=== PATIENT | female | born 1955 | race American Indian/Alaskan Native ===

== ENCOUNTER 2019-10-17 08:41 | Day surgery (SDC) | payer MEDICARE ==
[2019-10-17] MEDS ORDERED: LIDOCAINE MPF (2%) 20 MG/1 ML VIAL 5 ML ONE (09:00)
[2019-10-17] MEDS ORDERED: SODIUM CHLORIDE 0.9% 1000 ML 1,000 ML ONE (09:01)
--- NOTE | 2019-10-17 09:36 | Anesthesia Day of Surgery ---
Anesthesia Day of Surgery - Day of Surgery Patient Examined: Yes Patient H&P Reviewed: Yes Patient is NPO: Yes
--- NOTE | 2019-10-17 09:36 | Anesthesia Consultation ---
Anesthesia Consult and Med Hx Date of service: 10/17/19 - Airway Anesthetic Teeth Evaluation: Good ROM Head & Neck: Adequate Mental/Hyoid Distance: Adequate Mallampati Class: Class II Intubation Access Assessment: Good - Pulmonary Exam CTA: Yes - Cardiac Exam Cardiac Exam: RRR - Pre-Operative Health Status ASA Pre-Surgery Classification: ASA2 Proposed Anesthetic Plan: MAC - Cardiovascular System Hx Hypertension: Yes
[2019-10-17] MEDS ORDERED: SODIUM CHLORIDE 0.9% 1000 ML 1,000 ML IV SCH (10:30)
[2019-10-17] MEDS ORDERED: PROPOFOL 200 MG/20 ML VIAL IV ONE (10:34)
--- NOTE | 2019-10-17 11:06 | Procedure Note ---
Date of procedure: 10/17/19 Pre-op diagnosis: H/O Colon Polyps/F/H/O Colon Polyps Post-op diagnosis: other (Multiple Recto-Sigmoid Polyps (possibly Hyperplastic)/ Minor, Left Colon diverticular Disease/ Mild to Moderate Internal Hemorrhoid) Procedure: Colonoscopy with Cold Biopsy Anesthesia: MAC Surgeon: EM BLANDON Estimated blood loss: minimal Pathology: list Specimen disposition: to lab Condition: stable Disposition: same day (Avoid aspirin and NSAID for 4 days; otherwise resume home medication. Encourage fiber intake and follow up in 1 to 2 weeks ([phone]).)
--- NOTE | 2019-10-17 11:11 | Operative Report ---
PROCEDURE: Colonoscopy with biopsy. INDICATIONS: A 64-year-old -[place] female who previously had a colonoscopy a year ago and had multiple colon polyps removed at that time. Repeat colonoscopy was done to make sure there were not any additional polyps. The patient also has a strong family history of cancer. DESCRIPTION OF PROCEDURE: The procedure was done after getting informed consent with MAC anesthesia. Initial rectal exam was unremarkable. Instrument was passed through the rectum onto the cecum, which was identified by the ileocecal valve and the appendiceal orifice. The cecum was also visualized on the retroverted view. No additional pathology was noted. Cecum, ascending colon, transverse colon showed normal mucosa. There were a few minor diverticula noted in the left colon and multiple small possibly hyperplastic polyps noted in the rectosigmoid area that were removed by cold biopsy with minimal bleeding and the rectum showed mild to moderate internal hemorrhoid on the retroflexed view. ASSESSMENT: Colonoscopy with cold biopsy, history of colon polyps, multiple rectosigmoid polyps, possibly hyperplastic. Minor internal hemorrhoid and minor left colon diverticula, mild to moderate internal hemorrhoids. There was minimal bleeding associated with the procedure. No complications associated with the procedure. Procedure was done in the GI lab with the assistance of the GI lab team, which included a Carmen Arzate and with assistance of anesthesia. The patient will be asked to avoid aspirin and aspirin-related products for the next 4 days. Otherwise, resume home medication and follow up in the office in 1-2 weeks' time. JOB# [id number] LILIA/BHAVANA
[2019-10-17 11:34] VITALS: BP 127/73
--- NOTE | 2019-10-17 13:25 | Post Anesthesia Evaluation ---
- Post Anesthesia Evaluation Patient Participated: Yes Airway Patent: Yes Stable Respiratory Function: Yes Nausea/Vomiting: No Temp > 96.8F: Yes Pain Manageable: Yes Adequeate Hydration: Yes Anesthesia Complications: No Block Receding Appropriately: Not Applicable Patient on Ventilator: No
== END 2019-10-17 11:50 | disposition home or self-care (01) ==
LOC: GIO 08:41
DX: Z12.11 Encounter for screening for malignant neoplasm of colon (principal); K63.5 Polyp of colon; K62.1 Rectal polyp; K64.8 Other hemorrhoids; K57.30 Diverticulosis of large intestine without perforation or abscess without bleeding; K21.0 Gastro-esophageal reflux disease with esophagitis; I10 Essential (primary) hypertension; E78.5 Hyperlipidemia, unspecified; G47.30 Sleep apnea, unspecified; Z86.010 Personal history of colon polyps; Z87.891 Personal history of nicotine dependence; Z79.899 Other long term (current) drug therapy; Z88.8 Allergy status to other drugs, medicaments and biological substances
CPT/HCPCS: 45380; 88305; J2704; J7030